=== PATIENT | female | born 1955 | race Caucasian/White ===

== ENCOUNTER → 2018-03-24 | Outpatient (CLI) | payer OTHER ==
[~2018-03-24] MED LIST: AMIT-108 PO; AMLO-98 PO; AMOX-362 PO; AMOX-559 PO; ASC500 PO; ASPI81TA15 PO; ATEN100T93 PO; ATOR40TA24 PO; AUG500 PO; CALC-1060 PO; CRAN250C2 PO; DEXL60CA6 PO; DOCU50CA8 PO; DUL100/5PT INH; ESCI5TAB10 PO; ESOM40CA42 PO; EST3 PO; EST625 PO; FLUC150T40 PO; FLUINH INH; GLUC100026 PO; IRON18TA2 PO; LACT1TAB19; LORA10CA3 PO; LYSINE; MELA1TAB23 PO; METH1500 PO; MOMR NS; MON10 PO; MU-V1TAB9 PO; NAPR220C11 PO; NEBI20TA4 PO; OMEG300C PO; OXYC-865 PO; PHENYLEPHRINE PO; PIR14R INH; PSYL3.4P2 PO; TRIA15CR40 TP; [UNRECOGNIZED DRUG - CODE]; [UNRECOGNIZED DRUG - CODE] PO; [UNRECOGNIZED DRUG - CODE] PO; [UNRECOGNIZED DRUG - OTHER]
--- NOTE | 2018-03-24 13:34 | RADIOLOGY IMAGING REPORT ---
FACILITY: [facility] [place] PATIENT NAME: Prema Gooden : 1955 MR: [id number] V: [id number] EXAM DATE: ORDERING PHYSICIAN: TIM ROME TECHNOLOGIST: Location: [facility] Patient: Prema Gooden : 1955 Visit/Account:[id number] Date of Sevice: 03/24/2018 DEXA Scan Clinical history: Screening. Comparison: DEXA scan from 07/27/2009. LUMBAR SPINE: The bone mineral density (BMD) measured from L1-L4 correlates with a Z-score of 1.5 and a T-score of 0.3 which is Normal as defined by the World Health Organization. The corresponding risk of fracture in the lumbar spine is Not increased compared with a young adult reference population. This value cerda s increased by 3.9 % since the prior study. More than 5% change is considered significant. HIP: Bone mineral density (BMD) measured in the LEFT total hip region correlates with a Z-score zero and a T-score of -0.9 which is normal as defined by the World Health Organization. The corresponding risk of fracture in the hip is 1-2 t imes increased compared to a young adult reference population. This value has decreased by 14.3 % sin ce the prior study. More than 5% change is considered significant. T score left femoral neck -0.4 Bone mineral density (BMD) measured in the Femoral Neck region measures 0.983 g/cm?. IMPRESSION: 1. Lumbar spine: Normal. There has been 3.9% increase in the bone mineral density since the previou s exam. 2. Left Total Hip: Normal. There has been 14.3% decrease in the bone mineral density since the prev ious exam. 3. Femoral Neck: Bone Mineral Density is 0.983 g/cm? The next DEXA scan of this patient should include the following sites: L1-L4 and the left hip. FRAX? WHO Fracture Risk Assessment Tool link: <http://www.shef.ac.uk/FRAX/tool.jsp?locationValue=9> PLEASE NOTE: 1) The World Health Organization defines low BMD as follows: T-score Normal > -1 Osteopenia < -1 and > -2.5 Osteoporosis < -2.5 without fractures Established osteoporosis < -2.5 with fractures 2) In general, you may wish to consider: Diagnosis Treatment Follow-up DEXA Normal BMD Prevention 2-3 years Osteopenia Prevention/therapy 1-2 years Osteoporosis Therapy Yearly 3) Fracture risk estimated from the T-score is more accurate for vertebral fractures (often spontane ous) than for hip fractures. Report Dictated By: Marilyn Belcher MD at 03/24/2018 1:20 PM Report E-Signed By: Marilyn Belcher MD at 03/24/2018 1:31 PM WSN:[email or web address]
== END ==
LOC: RAD 11:20
PROVIDERS: ATTEND Family Medicine
DX: N95.1 Menopausal and female climacteric states (principal)
CPT/HCPCS: 77080